=== PATIENT | male | born 1940 | race Caucasian/White ===

== ENCOUNTER 2018-06-02 12:53 | Inpatient (IN) ==
[2018-06-02 13:48] LABS: Basophils # 0.1 K/mcL (0.0-0.2); Basophils % 0.4 %; Eosinophils # 0.2 K/mcL (0.0-0.6); Eosinophils % 1.3 %; Hematocrit 36.4 % (37.5-50.1); Hemoglobin 10.9 g/dL (12.9-16.9); Immature Granulocytes % 0.4 % (0-4); Lymphocytes # 1.3 K/mcL (0.6-4.6); Lymphocytes % 11.3 %; Mean Corpuscular HGB Conc 29.9 g/dL (31.6-35.5); Mean Corpuscular Hemoglobin 22.8 pg (28.0-33.3); Mean Platelet Volume 10.9 fL (9.4-12.4); Monocytes # 1.1 K/mcL (0.0-1.3); Monocytes % 9.6 %; Neutrophils # 9.1 K/mcL (1.6-8.9); Platelet Count 220 K/mcL (140-400); Red Blood Count 4.79 M/mcL (4.19-5.50); Red Cell Distribution Width 16.3 % (11.5-14.5)
[2018-06-02] MEDS ORDERED: Isovue-370 500 ML INFUS..BTL IV ONE (14:05)
[2018-06-02 14:07] LABS: BUN/Creatinine Ratio 15 (6-26); Blood Urea Nitrogen 16 mg/dL (8-23); Calcium 9.1 mg/dL (8.6-10.3); Carbon Dioxide 30 mEq/L (23-29); Chloride 100 mEq/L (98-107); Glucose 160 mg/dL (70-105); Osmolality,Calculated 283 (280-300); Potassium 4.5 mEq/L (3.5-5.1); Sodium 134 mEq/L (136-145); eGFR For Non-African Americans > 60 (> 60)
[2018-06-02] MEDS ORDERED: Aspirin 81 MG TAB.CHEW PO STA (14:25)
--- NOTE | 2018-06-02 14:54 | Emergency Department Note ---
Disposition General Adult HPI - General Chief complaint: ED Shortness of Breath/Dyspnea Stated complaint: Possible pneumonia Time Seen by Provider: 06/02/18 13:09 Source: patient Limitations: no limitations Nursing Notes Reviewed: Yes Vital Signs Reviewed: Yes - History of Present Illness Pain Scale: 7 - Related Data Home Medications Medication Instructions Recorded Confirmed Aspirin [Adult Low Dose Aspirin EC] 81 mg PO DAILY 11/29/15 01/27/16 Cholecalciferol (Vitamin D3) 2,000 unit PO DAILY 11/29/15 01/27/16 [Vitamin D3] Amlodipine Besylate 10 mg PO DAILY 01/27/16 01/27/16 Atorvastatin [Lipitor] 40 mg PO HS 01/27/16 01/27/16 Carvedilol [Coreg] 1 tab PO Q12H 01/27/16 05/11/16 Cyanocobalamin (Vitamin B-12) 1,000 mcg PO DAILY 01/27/16 01/27/16 [Vitamin B12] Ferrous Gluconate 325 mg PO BID 01/27/16 01/27/16 Furosemide [Lasix] 40 mg PO DAILY 01/27/16 01/27/16 Hydralazine HCl 100 mg PO Q8H 01/27/16 01/27/16 Insulin Glargine,Hum.rec.anlog 10 unit SQ QAM 01/27/16 01/27/16 [Lantus Solostar] Isosorbide DInitrate [Isosorbide 20 mg PO TID 01/27/16 01/27/16 Dinitrate] Melatonin 3 mg PO HS 01/27/16 01/27/16 Potassium Chloride [K-Tab ER] 20 meq PO DAILY 01/27/16 01/27/16 SitaGLIPtin [Januvia] 25 mg PO DAILY 01/27/16 01/27/16 cloNIDine HCl [CloNIDine HCl] 0.1 mg PO TID 05/11/16 05/11/16 Previous Rx's Medication Instructions Recorded Acetaminophen [Tylenol] 650 mg PO Q6HR PRN #0 tablet 12/02/15 Insulin LISPRO [HumaLOG] 0 units SQ TIDAC vial 12/02/15 Meclizine [Antivert] 12.5 mg PO ONCE PRN #8 tablet 07/10/17 Allergies Allergy/AdvReac Type Severity Reaction Status Date / Time doxycycline AdvReac Nausea Verified 07/10/17 18:35 Past Medical History - Past Medical History Medical history: Reports: coronary artery disease, diabetes, GERD, hypertension , renal disease Surgical history: Reports: coronary bypass (CABG) Psychiatric history: Reports: no psych history - Social History Smoking Status: Former smoker Smokeless Tobacco Status: No Alcohol use: Reports: none Drug use: Reports: none Physical Exam - General Limitations: no limitations General appearance: alert Course Vital Signs Temperature 97.4 F L 06/02/18 12:56 Pulse Rate 70 06/02/18 12:56 Respiratory Rate 18 06/02/18 12:56 Blood Pressure 123/83 06/02/18 12:56 O2 Sat by Pulse Oximetry 97 06/02/18 12:56 Temperature 97.4 F L 06/02/18 13:44 Pulse Rate 70 06/02/18 13:44 Respiratory Rate 18 06/02/18 13:44 Blood Pressure 123/83 06/02/18 13:44 O2 Sat by Pulse Oximetry 97 06/02/18 13:44 Oxygen Delivery Oxygen Delivery Room Air Medical Decision Making - Lab Data Result diagrams: 06/02/18 13:33 06/02/18 13:33 Lab Results 06/02/18 06/02/18 06/02/18 Range/Units 13:33 13:33 13:33 WBC 11.8 H (4.3-11.1) K/mcL RBC 4.79 (4.19-5.50) M/mcL Hgb 10.9 L (12.9-16.9) g/dL Hct 36.4 L (37.5-50.1) % MCV 76.0 L (83.0-100.0) fL MCH 22.8 L (28.0-33.3) pg MCHC 29.9 L (31.6-35.5) g/dL RDW 16.3 H (11.5-14.5) % Plt Count 220 (140-400) K/mcL MPV 10.9 (9.4-12.4) fL Immature Gran % 0.4 (0-4) % Seg Neutrophils % 77.0 % Lymphocytes % 11.3 % Monocytes % 9.6 % Eosinophils % 1.3 % Basophils % 0.4 % Neutrophils # 9.1 H (1.6-8.9) K/mcL Lymphocytes # 1.3 (0.6-4.6) K/mcL Monocytes # 1.1 (0.0-1.3) K/mcL Eosinophils # 0.2 (0.0-0.6) K/mcL Basophils # 0.1 (0.0-0.2) K/mcL Sodium 134 L (136-145) mEq/L Potassium 4.5 (3.5-5.1) mEq/L Chloride 100 (98-107) mEq/L Carbon Dioxide 30 H (23-29) mEq/L BUN 16 (8-23) mg/dL Creatinine 1.09 (0.70-1.30) mg/dL Est GFR ( Amer) > 60 (> 60) Est GFR (Non-Af Amer) > 60 (> 60) BUN/Creatinine Ratio 15 (6-26) Glucose 160 H (70-105) mg/dL Calculated Osmolality 283 (280-300) Lactic Acid 1.4 (0.5-2.2) mmol/L Calcium 9.1 (8.6-10.3) mg/dL Troponin I (< 0.04) ng/mL B-Natriuretic Peptide (Less than 100) pg/mL 06/02/18 06/02/18 Range/Units 13:33 13:33 WBC (4.3-11.1) K/mcL RBC (4.19-5.50) M/mcL Hgb (12.9-16.9) g/dL Hct (37.5-50.1) % MCV (83.0-100.0) fL MCH (28.0-33.3) pg MCHC (31.6-35.5) g/dL RDW (11.5-14.5) % Plt Count (140-400) K/mcL MPV (9.4-12.4) fL Immature Gran % (0-4) % Seg Neutrophils % % Lymphocytes % % Monocytes % % Eosinophils % % Basophils % % Neutrophils # (1.6-8.9) K/mcL Lymphocytes # (0.6-4.6) K/mcL Monocytes # (0.0-1.3) K/mcL Eosinophils # (0.0-0.6) K/mcL Basophils # (0.0-0.2) K/mcL Sodium (136-145) mEq/L Potassium (3.5-5.1) mEq/L Chloride (98-107) mEq/L Carbon Dioxide (23-29) mEq/L BUN (8-23) mg/dL Creatinine (0.70-1.30) mg/dL Est GFR ( Amer) (> 60) Est GFR (Non-Af Amer) (> 60) BUN/Creatinine Ratio (6-26) Glucose (70-105) mg/dL Calculated Osmolality (280-300) Lactic Acid (0.5-2.2) mmol/L Calcium (8.6-10.3) mg/dL Troponin I 0.04 H* (< 0.04) ng/mL B-Natriuretic Peptide 362 H (Less than 100) pg/mL
[2018-06-02 15:24] LABS: INR 3.7
[2018-06-02 15:27] LABS: Activated Partial Thrombo Time 51.1 Seconds (26.0-36.0)
--- NOTE | 2018-06-02 15:41 | Emergency Department Note ---
Disposition Clinical Impression: Community acquired pneumonia, Fluid overload, Orthopnea Disposition: Admitted As Inpatient Condition: Fair Time of Disposition: 16:43 SOB HPI - General Chief Complaint: ED Shortness of Breath/Dyspnea Stated Complaint: Possible pneumonia Time Seen by Provider: 06/02/18 13:09 Source: patient Mode of arrival: ambulatory Limitations: no limitations Nursing Notes Reviewed: Yes Vital Signs Reviewed: Yes - History of Present Illness Patient resents emergency room with complaint of progressively worsening shortness of breath and orthopnea home. Patient denies any history of COPD or emphysema. He does have a history of cardiac related disease including coronary artery disease with bypass. He denies any chest pain other symptoms leading up to the presentation here today. He is concerned because his increased work of breathing as well as inability to lie flat. Pt Subjective Complaint: shortness of breath Onset (ago): day(s) Severity: moderate Consistency/Duration: constant Improves with: nothing Worsens with: lying flat, exertion Associated symptoms: Reports: cough, orthopnea Treatment prior to arrival: none - Related Data Home Medications Medication Instructions Recorded Confirmed Aspirin [Adult Low Dose Aspirin EC] 81 mg PO DAILY 11/29/15 01/27/16 Cholecalciferol (Vitamin D3) 2,000 unit PO DAILY 11/29/15 01/27/16 [Vitamin D3] Amlodipine Besylate 10 mg PO DAILY 01/27/16 01/27/16 Atorvastatin [Lipitor] 40 mg PO HS 01/27/16 01/27/16 Carvedilol [Coreg] 1 tab PO Q12H 01/27/16 05/11/16 Cyanocobalamin (Vitamin B-12) 1,000 mcg PO DAILY 01/27/16 01/27/16 [Vitamin B12] Ferrous Gluconate 325 mg PO BID 01/27/16 01/27/16 Furosemide [Lasix] 40 mg PO DAILY 01/27/16 01/27/16 Hydralazine HCl 100 mg PO Q8H 01/27/16 01/27/16 Insulin Glargine,Hum.rec.anlog 10 unit SQ QAM 01/27/16 01/27/16 [Lantus Solostar] Isosorbide DInitrate [Isosorbide 20 mg PO TID 01/27/16 01/27/16 Dinitrate] Melatonin 3 mg PO HS 01/27/16 01/27/16 Potassium Chloride [K-Tab ER] 20 meq PO DAILY 01/27/16 01/27/16 SitaGLIPtin [Januvia] 25 mg PO DAILY 01/27/16 01/27/16 cloNIDine HCl [CloNIDine HCl] 0.1 mg PO TID 05/11/16 05/11/16 Previous Rx's Medication Instructions Recorded Acetaminophen [Tylenol] 650 mg PO Q6HR PRN #0 tablet 12/02/15 Insulin LISPRO [HumaLOG] 0 units SQ TIDAC vial 12/02/15 Meclizine [Antivert] 12.5 mg PO ONCE PRN #8 tablet 07/10/17 Allergies Allergy/AdvReac Type Severity Reaction Status Date / Time doxycycline AdvReac Nausea Verified 07/10/17 18:35 All systems ED: reviewed and negative except as stated. Review of Systems: As Per HPI Constitutional: Denies: fever, chills Cardiovascular: Reports: dyspnea on exertion, orthopnea. Denies: chest pain, palpitations, edema Respiratory: Reports: cough, dyspnea, stridor. Denies: wheezes, sputum production Gastrointestinal: Denies: abdominal pain, nausea, vomiting, diarrhea Genitourinary: Denies: urgency, dysuria, frequency Musculoskeletal: Denies: back pain, neck pain Neurological: Denies: headache Past Medical History - Past Medical History Attestation: Yes The following information was validated with the patient. Source: patient Medical history: Reports: coronary artery disease, diabetes, GERD, hypertension , renal disease Surgical history: Reports: coronary bypass (CABG) Psychiatric history: Reports: no psych history - Social History Smoking Status: Former smoker Smokeless Tobacco Status: No Alcohol use: Reports: none Drug use: Reports: none Physical Exam - General Limitations: no limitations General appearance: alert - Eye Eye exam: Present: normal appearance, PERRL, EOMI - ENT ENT exam: normal exam, normal oropharynx, mucous membranes moist - Neck Neck exam: Present: normal inspection, full ROM, trachea midline - Chest Chest inspection: Present: normal inspection, symmetric chest wall rise. Absent : tenderness - Respiratory Respiratory exam: Present: respiratory distress. Absent: wheezes, stridor, accessory muscle use - Cardiovascular Cardiovascular exam: Present: regular rate, normal rhythm, normal heart sounds - Extremities Exam Extremities exam: Present: normal inspection, full ROM, normal capillary refill , pedal edema. Absent: tenderness - Back Exam Back exam: Present: normal inspection, full ROM. Absent: tenderness - Neurological Exam Neurological exam: Present: alert, oriented X3, CN II-XII intact, normal gait - Skin Skin exam: Present: warm, dry, intact, normal color Course Course Narrative: Patient seen and examined the time of arrival. See history of present illness. 78-year-old male with significant cardiac related history presents emergency room with cough nonproductive presentation. He also is describing orthopnea and significant increased work of breathing. He denies any recent illnesses fevers chills headache vision changes. Patient is denying chest pain. No other complaints or issues at least initially here. Physical exam the patient is sitting upright in the bed says that he cannot lay back secondary to the orthopnea. His oropharynx is patent trachea is midline he has no stridor no trismus. His lungs appear to be clear but he does have some intermittent coarse crackles as well as what he describes as increased work of breathing. Heart is regular. 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 Patient is concerning for pulmonary fluid overload versus pulmonary emboli versus pleural effusion. Patient had chest x-ray completed the outpatient setting is concerning for possible pneumonia. Patient has been on outpatient antibiotics over the last week. He denies any productive sputum fever or chills. His main complaint is the difficulty with breathing while lying flat. Patient will have chest x-ray CBC chemistry troponin EKG collected here in the emergency room along with a BNP. Suspicion is the patient has progression of his heart failure causing fluid overload versus pleural effusion. Patient will have detailed workup completed this time. Aspirin will be given. Symptomatically controlled be established as needed. Patient is otherwise clinically stable and in no distress. Disposition pending evaluation - Reevaluation(s) Reevaluation #1: Chest x-ray does not show any acute signs of pneumonia but there is concern for possible pleural effusion. CT angiography the chest is ordered to rule out definitively blood clot versus pneumonia versus pleural effusion. Patient is otherwise still symptomatic sitting up in the bed. His BNP is elevated in the 300 range but this is not the highest in the past. He does have some slight pitting edema in the lower extremities 40 mg of Lasix will be ordered. Patient will be started on antibiotics including azithromycin, Rocephin, Levaquin to treat for community-acquired pneumonia while the CT imaging is resulted. Blood cultures will be ordered. Patient does have an elevated white blood cell count and neutrophil count. Patient otherwise is clinically stable. Suspicion is this is a combination of congestive heart failure versus possible pulmonary related infection. Patient will be admitted. The hospitalist Dr. Harper reviewed the case and no other questions or concerns. The patient was informed of the family were advised and they are comfortable with the plan. No other acute issues noted this time. Patient will be admitted for continuation of care. Time: 16:41 Vital Signs Temperature 97.4 F L 06/02/18 12:56 Pulse Rate 70 06/02/18 12:56 Respiratory Rate 18 06/02/18 12:56 Blood Pressure 123/83 06/02/18 12:56 O2 Sat by Pulse Oximetry 97 06/02/18 12:56 Temperature 97.4 F L 06/02/18 13:44 Pulse Rate 70 06/02/18 13:44 Respiratory Rate 18 06/02/18 13:44 Blood Pressure 123/83 06/02/18 13:44 O2 Sat by Pulse Oximetry 97 06/02/18 13:44 Oxygen Delivery Oxygen Delivery Room Air Shortness of Breath/Dyspnea - MDM Narrative Medical decision making narrative: Pneumonia, orthopnea, fluid overload - Medical Records Medical records reviewed: Yes I reviewed the patient's medical records. - Lab Data Lab results reviewed: Yes I reviewed the patient's lab results. Result diagrams: 06/02/18 13:33 06/02/18 13:33 Lab Results 06/02/18 06/02/18 06/02/18 Range/Units 13:33 13:33 13:33 WBC 11.8 H (4.3-11.1) K/mcL RBC 4.79 (4.19-5.50) M/mcL Hgb 10.9 L (12.9-16.9) g/dL Hct 36.4 L (37.5-50.1) % MCV 76.0 L (83.0-100.0) fL MCH 22.8 L (28.0-33.3) pg MCHC 29.9 L (31.6-35.5) g/dL RDW 16.3 H (11.5-14.5) % Plt Count 220 (140-400) K/mcL MPV 10.9 (9.4-12.4) fL Immature Gran % 0.4 (0-4) % Seg Neutrophils % 77.0 % Lymphocytes % 11.3 % Monocytes % 9.6 % Eosinophils % 1.3 % Basophils % 0.4 % Neutrophils # 9.1 H (1.6-8.9) K/mcL Lymphocytes # 1.3 (0.6-4.6) K/mcL Monocytes # 1.1 (0.0-1.3) K/mcL Eosinophils # 0.2 (0.0-0.6) K/mcL Basophils # 0.1 (0.0-0.2) K/mcL PT (9.4-12.1) Seconds INR APTT (26.0-36.0) Seconds Sodium 134 L (136-145) mEq/L Potassium 4.5 (3.5-5.1) mEq/L Chloride 100 (98-107) mEq/L Carbon Dioxide 30 H (23-29) mEq/L BUN 16 (8-23) mg/dL Creatinine 1.09 (0.70-1.30) mg/dL Est GFR ( Amer) > 60 (> 60) Est GFR (Non-Af Amer) > 60 (> 60) BUN/Creatinine Ratio 15 (6-26) Glucose 160 H (70-105) mg/dL Calculated Osmolality 283 (280-300) Lactic Acid 1.4 (0.5-2.2) mmol/L Calcium 9.1 (8.6-10.3) mg/dL Troponin I (< 0.04) ng/mL B-Natriuretic Peptide (Less than 100) pg/mL 06/02/18 06/02/18 06/02/18 Range/Units 13:33 13:33 13:33 WBC (4.3-11.1) K/mcL RBC (4.19-5.50) M/mcL Hgb (12.9-16.9) g/dL Hct (37.5-50.1) % MCV (83.0-100.0) fL MCH (28.0-33.3) pg MCHC (31.6-35.5) g/dL RDW (11.5-14.5) % Plt Count (140-400) K/mcL MPV (9.4-12.4) fL Immature Gran % (0-4) % Seg Neutrophils % % Lymphocytes % % Monocytes % % Eosinophils % % Basophils % % Neutrophils # (1.6-8.9) K/mcL Lymphocytes # (0.6-4.6) K/mcL Monocytes # (0.0-1.3) K/mcL Eosinophils # (0.0-0.6) K/mcL Basophils # (0.0-0.2) K/mcL PT 42.0 H (9.4-12.1) Seconds INR 3.7 APTT 51.1 H (26.0-36.0) Seconds Sodium (136-145) mEq/L Potassium (3.5-5.1) mEq/L Chloride (98-107) mEq/L Carbon Dioxide (23-29) mEq/L BUN (8-23) mg/dL Creatinine (0.70-1.30) mg/dL Est GFR ( Amer) (> 60) Est GFR (Non-Af Amer) (> 60) BUN/Creatinine Ratio (6-26) Glucose (70-105) mg/dL Calculated Osmolality (280-300) Lactic Acid (0.5-2.2) mmol/L Calcium (8.6-10.3) mg/dL Troponin I 0.04 H* (< 0.04) ng/mL B-Natriuretic Peptide 362 H (Less than 100) pg/mL - Radiology Data Radiology results reviewed: Yes I reviewed the patient's radiology results. CT angiography the chest is unremarkable for pulmonary emboli. Suspicion of pneumonia bilaterally. - EKG Data EKG attestation: Yes I reviewed and interpreted this EKG. EKG results narrative: EKG shows ventricularly paced rhythm with no acute signs of ST segment elevation. Is compared EKG on 07/10/17 with no changes intervals appear to be normal. [place] appears to be stable.
[2018-06-02] MEDS ORDERED: Ipratropium/Albuterol Neb 3 ML IH ONE (16:01)
[2018-06-02] MEDS ORDERED: Furosemide 40 MG in 0.9 % Sodium Chloride 50 ML IVPB STA (16:12)
[2018-06-02] MEDS ORDERED: Levofloxacin 750 MG/150 ML 750 MG/150 ML BAG IVPB ONE (17:00)
[2018-06-02] MEDS ORDERED: Azithromycin 500 MG in D5% in Water 250 ML IVPB ONE (17:00)
[2018-06-02] MEDS ORDERED: cefTRIAXone 2,000 MG in Water for inj. (sterile) 20 ML 20 ML IVP ONE (17:00)
[2018-06-02] MEDS ORDERED: Naloxone 0.4 MG/ML INJ IVP PRN (17:31)
[2018-06-02] MEDS ORDERED: D5% in Water 1,000 ML IVC PRN (18:18)
[2018-06-02] MEDS ORDERED: *HR* Dextrose 50 % in Water (Syg) 50 ML SYRINGE IVP PRN (18:18)
[2018-06-02] MEDS ORDERED: Dextrose Gel 15 GM/37.5 ML TUBE PO PRN ×2 (18:18)
--- NOTE | 2018-06-02 18:23 | Internal Med History&Physical ---
<Jori Velásquez - Last Filed: 06/02/18 19:29> Date of Encounter: 06/02/18 Time of Encounter: 17:30 Internal Medicine - H&P: HPI Chief complaint: shortness of breath Admitted From: Emergency Dept History of present illness: Mr. Jones is a 78 year old male who presented to the ED with 1 week onset of worsening shortness of breath. His past medical history is significant for CABG 2002, s/p TAVR 2012 on coumadin, afib, PPM for symptomatic bradycardia 2012, HTN, HLD. His shortness of breath is worse with exertion and lying flat. He denies sick contacts, he reports compliance with his home medications. ECG ED shows pacing without ischemic changes, troponin of 0.04, BNP of 362, CXR shows a stable R sided pleural effusion, CTA shows no PE, there is evidence of mediastinal LAD. Patient denies chest pain now or in association with presenting symptoms. He denies fever, nausea, vomiting, hemoptysis, diarrhea, constipation, or abdominal pain. He reports orthopnea and mild foot swelling. He endorses shortness of breath, cough, and wheeze. Past Med Surg Social Fam HX - Past Medical History Medical history: coronary artery disease, diabetes, GERD, hypertension, renal disease Psychiatric history: no psych history - Past Surgical History Surgical History: coronary bypass (CABG) - Social History Smoking Status: Former smoker Smokeless Tobacco Status: No Alcohol use: none Drug use: none - Family History Mother Living Status: Hx Family Cardiac Disorders: Yes (AR) Hx Family Respiratory Disorders: No Hx Family Cancer: No Hx Family GI Disorders: No Hx Family Endocrine Disorder: Yes (DM) Hx Family Neuromuscular Disorders: No Hx Family Neurologic Disorders: No Hx Family HEENT Disorders: No Hx Family Autoimmune Disorders: No Internal Medicine - H&P: Meds Amlodipine Besylate 10 mg PO DAILY 01/27/16 [History] Atorvastatin [Lipitor] 40 mg PO HS 01/27/16 [History] Carvedilol [Coreg] 25 mg PO BID 01/27/16 [History] Hydralazine HCl 100 mg PO Q8H 01/27/16 [History] Isosorbide DInitrate [Isosorbide Dinitrate] 20 mg PO TID 01/27/16 [History] cloNIDine HCl [CloNIDine HCl] 0.1 mg PO TID 05/11/16 [History] Aspirin Enteric Coated [Aspirin EC] 81 mg PO DAILY 06/02/18 [History] Ferrous Gluconate 324 mg PO BID 06/02/18 [History] Gabapentin [Neurontin] 300 mg PO HS 06/02/18 [History] Glimepiride [Amaryl] 2 mg PO DAILY 06/02/18 [History] Metformin HCl [Metformin HCl ER] 500 mg PO BID 06/02/18 [History] Torsemide [Demadex] 5 mg PO DAILY PRN 06/02/18 [History] Warfarin [Coumadin] 6 mg PO SUTUTHSA 06/02/18 [History] Warfarin [Coumadin] 9 mg PO MOWEFR 06/02/18 [History] 3 Allergy/AdvReac Type Severity Reaction Status Date / Time doxycycline AdvReac Nausea Verified 07/10/17 18:35 All Systems PM: A 10-system review of systems was performed and is negative for pertinent findings except as documented above in the HPI. - Constitutional Constitutional: no chills, no fever(s), no night sweats - EENT Eyes: no change in vision, no discharge, no pain, no photophobia Ears: no ear discharge, no ear pain, no tinnitus Nose, mouth and throat: no dysphagia, no nasal discharge, no neck pain, no sore throat - Cardiovascular Cardiovascular ROS IM: dyspnea on exertion, edema (pedal), orthopnea, no chest pain, no diaphoresis, no palpitations, no syncope - Respiratory Respiratory: cough, dyspnea, wheezing, no hemoptysis, no excessive phlegm production, no change in phlegm color - Gastrointestinal Gastrointestinal: no abdominal pain, no diarrhea, no hematemesis, no hematochezia, no melena, no nausea, no vomiting - Musculoskeletal Musculoskeletal ROS IM: no numbness, no tingling - Integumentary Integumentary IM: no erythema - Neurological Neurological ROS: no confusion, no convulsions, no focal weakness, no numbness, no tingling, no tremor(s) - Psychiatric Psychiatric: no anxiety, no confusion, no depression - Constitutional Vitals: Temp Pulse Resp BP Pulse Ox 97.4 F L 65 18 164/43 95 06/02/18 13:44 06/02/18 17:02 06/02/18 17:13 06/02/18 17:02 06/02/18 17:13 General appearance: Present: A&O X 3 Exam: . - Head Head exam: Present: atraumatic, normocephalic - Eye Eye exam: Present: EOMI, conjuntiva pink, sclera anicteric - Neck Neck exam general surgery: Present: supple, trachea midline. Absent: lymphadenopathy - Respiratory Respiratory exam: Present: rales, wheezes. Absent: accessory muscle use, chest wall tenderness, rhonchi, tachypnea Additional comments: bilateral basilar rales - Cardiovascular Cardiovascular exam: Present: RRR, +S1, +S2 (loud S2). Absent: diastolic murmur , gallop, rubs, systolic murmur - GI/Abdominal GI/Abdominal exam: Present: normal bowel sounds, soft, no peritoneal signs. Absent: distended, tenderness - Extremities Exam Extremities exam: Present: pedal edema (+1 pitting), warm, radial pulses palpable and symmetrical. Absent: calf tenderness, cyanotic - Neurological Exam Neurological exam: Present: oriented X3, no focal deficits. Absent: pronater drift, facial droop, speech deficit - Skin Skin exam: Present: dry, intact Internal Med - H&P Results - Labs CBC & Chem 7: 06/02/18 13:33 06/02/18 13:33 - Assessment and plan (1) Dyspnea Current Visit: Yes Status: Acute Assessment and plan: 78M non-toxic appearing, 1 week of worsening shortness of breath, worse with exertion, laying flat ECHO LVEF 55% February 2018; trop 0.04, bnp 362 ECG shows paced rhythm without ischemic changes Mixed etiology, concern for heart failure +/- community acquired pneumonia P: Admit to med/surg with telemetry Limited echo to assess structure, ef, and valves Trend troponins, though likely type 2 PRN adn GURDEEP duoneb q4, o2 titration Rocephin 1g IVPB daily/azithromycin 500mg IVPB daily Lasix 40mg po daily Qualifiers: Dyspnea type: unspecified Qualified Code(s): R06.00 - Dyspnea, unspecified (2) Pleural effusion Current Visit: Yes Status: Acute Assessment and plan: Seen on CXR; management as above (3) S/P placement of cardiac pacemaker Current Visit: No Status: Acute Assessment and plan: PPM 2012 ECG shows paced rhythm Continue home Coreg and Amlodipine; limited echo pending (4) DM2 (diabetes mellitus, type 2) Current Visit: No Status: Chronic Assessment and plan: Hold home metformin and glimepiride SSI low dose Qualifiers: Diabetes mellitus terminal carman insulin use: unspecified terminal carman insulin use status Diabetes mellitus complication status: without complication Qualified Code(s): E11.9 - Type 2 diabetes mellitus without complications (5) H/O heart valve replacement with bioprosthetic valve Current Visit: No Status: Chronic Assessment and plan: S/P TAVR 2012 INR 3.7 ECHO to assess valve function Continue Coumadin (pharmacy to dose appreciated) (6) Hypertension Current Visit: Yes Status: Acute Assessment and plan: Chronic condition, hypertensive in 160s, continuing home Coreg and Amlodipine Qualifiers: Hypertension type: unspecified Qualified Code(s): I10 - Essential (primary ) hypertension (7) DVT prophylaxis Current Visit: Yes Status: Acute Assessment and plan: Continue Coumadin (perPT) INR 3.7 - Time Spent With Patient Total time spent is greater than 50% in coordination of care (as documented) at patient's floor/unit and/or counseling patient: Greater than 35 minutes <Darius Davis - Last Filed: 06/03/18 16:23> Date of Encounter: 06/02/18 Internal Medicine - H&P: HPI History of present illness: Mr. Jones is a 78 year old male All Systems PM: A 10-system review of systems was performed and is negative for pertinent findings except as documented above in the HPI. - Constitutional Vitals: Temp Pulse Resp BP Pulse Ox 98.2 F 70 15 136/45 96 06/03/18 15:48 06/03/18 15:48 06/03/18 15:56 06/03/18 15:48 06/03/18 15:56 Internal Med - H&P Results - Labs CBC & Chem 7: 06/03/18 04:59 06/03/18 04:59 Labs: Short CBC 06/03/18 Range/Units 04:59 WBC 10.2 (4.3-11.1) K/mcL Hgb 10.2 L (12.9-16.9) g/dL Hct 33.4 L (37.5-50.1) % Plt Count 190 (140-400) K/mcL Neutrophils # 7.4 (1.6-8.9) K/mcL BMP 09/18/18 04:59 Sodium 133 L Potassium 4.0 Chloride 99 Carbon Dioxide 28 BUN 18 Creatinine 1.16 Glucose 82 Calcium 8.6 Cardiac Enzymes 06/02/18 06/03/18 Range/Units 23:07 04:59 Troponin I 0.04 H* 0.04 H* (< 0.04) ng/mL - Impressions ITS Impressions Echocardiogram 06/03/18 07:00 Impressions: LVEF 55%. Indeterminate diastolic function. Normal right ventricular structure and function. Mild-moderate mitral regurgitation. Bioprosthetic aortic valve not well visualized. Normal function by Doppler. Mild aortic regurgitation. No pulmonary hypertension. A device lead was visualized in the right atrium and right ventricle. Left Ventricular Wall Motion: Rest Echo Findings All wall segments showed normal motion. Findings: Study Quality * Technically adequate exam. ECG Findings * Paced rhythm. Left Ventricle * LVEF 55%. * Normal LV chamber size and wall thickness. * Indeterminate diastolic function. Right Ventricle * Normal right ventricular structure and function. Left Atrium * Mildly dilated left atrium. Right Atrium * Normal right atrial size. Mitral Valve * Mild-moderate mitral annular calcification * No mitral stenosis. * Mild-moderate mitral regurgitation. * Mildly thickened mitral valve leaflets. Aortic Valve * Bioprosthetic aortic valve not well visualized. * Mild aortic regurgitation. * No aortic stenosis. Tricuspid Valve * Tricuspid valve not well visualized. * Trace tricuspid regurgitation. * Estimated RA pressure is 3 mmHg. Pulmonic Valve * Pulmonic valve is not well visualized. * No pulmonic stenosis. * No pulmonic regurgitation. Pulmonary Artery * Pulmonary artery not well visualized. Aorta * Normally sized aortic root. Pericardium * There is no pericardial effusion present. Device lead * A device lead was visualized in the right atrium and right ventricle. Interatrial Septum * No evidence of PFO by color Doppler. IVC * Normal IVC dimensions and inspiratory collapse. - Assessment and plan (1) Pneumonia Current Visit: Yes Status: Suspected Qualifiers: Pneumonia type: due to Pneumococcus Laterality: bilateral Lung location: lower lobe of lung Qualified Code(s): J13 - Pneumonia due to Streptococcus pneumoniae (2) COPD (chronic obstructive pulmonary disease) Current Visit: Yes Status: Suspected Qualifiers: COPD type: COPD with acute exacerbation Qualified Code(s): J44.1 - Chronic obstructive pulmonary disease with (acute) exacerbation (3) Fluid overload Current Visit: Yes Status: Acute Qualifiers: Hypervolemia type: other Qualified Code(s): E87.79 - Other fluid overload (4) Hypertension Current Visit: Yes Status: Chronic Qualifiers: Hypertension type: essential hypertension Qualified Code(s): I10 - Essential (primary) hypertension (5) DM2 (diabetes mellitus, type 2) Current Visit: No Status: Chronic Qualifiers: Diabetes mellitus terminal carman insulin use: without care home use Diabetes mellitus complication status: without complication Qualified Code(s): E11.9 - Type 2 diabetes mellitus without complications (6) H/O heart valve replacement with bioprosthetic valve Current Visit: No Status: Chronic - Time Spent With Patient Total time spent is greater than 50% in coordination of care (as documented) at patient's floor/unit and/or counseling patient: - Attending Attestation I examined this patient and my medical decision-making was reviewed with the Resident Physician on 06/02/18. I agree with the documented findings, disposition and treatment plan as described except to the extent set forth below. Please see event note of this date.
[2018-06-02] MEDS ORDERED: Ipratropium/Albuterol Neb 3 ML IH PRN (18:45)
[2018-06-02] MEDS ORDERED: Albuterol 2.5 MG/3 ML NEBULIZER IH PRN (19:00)
--- NOTE | 2018-06-02 19:15 | Event Note ---
Date of Encounter: 06/02/18 Time of Encounter: 18:45 I examined this patient and my medical decision-making was reviewed with the Resident Physician on 06/02/18. I agree with the documented findings, disposition and treatment plan as described except to the extent set forth below. Mr Jones is a 78 y/o male with a complicated cardiac history presented to ED with worsening SOB. He has had symptoms progressive over last few days and was sleeping sitting up in chair. He had orthopnea and chest congestion. No fever or chills. Evaluated in ED and given aerosol and Lasix. At the current time he is feeling somewhat better. Exam alert Comfortable up in chair. Mucus membranes dry Heart reg - Lungs with diffuse wheeze and rhonchi Abd soft No edema at this time I/P 1. Acute exac CHF - probable. Diastolic. 2. Acute exac COPD - aerosols, abx, 3. Possible PNA Further diagnoses and plan as per H&P
[2018-06-02] MEDS: Insulin LISPRO 300 UNITS/3 ML VIAL SQ SCH ×2 (22:00→22:06)
[2018-06-02] MEDS: Gabapentin 300 MG CAPSULE PO SCH (22:05)
[2018-06-02] MEDS: amLODIPine 5 MG TABLET PO SCH (22:06)
[2018-06-02] MEDS: Ipratropium/Albuterol Neb 3 ML IH SCH (23:27)
[2018-06-03] MEDS: Ipratropium/Albuterol Neb 3 ML IH SCH ×6 (04:25→23:36)
[2018-06-03 05:15] LABS: Basophils # 0.1 K/mcL (0.0-0.2); Basophils % 0.6 %; Eosinophils # 0.4 K/mcL (0.0-0.6); Eosinophils % 3.5 %; Hematocrit 33.4 % (37.5-50.1); Hemoglobin 10.2 g/dL (12.9-16.9); Immature Granulocytes % 0.5 % (0-4); Lymphocytes # 1.3 K/mcL (0.6-4.6); Lymphocytes % 12.6 %; Mean Corpuscular HGB Conc 30.5 g/dL (31.6-35.5); Mean Corpuscular Hemoglobin 22.8 pg (28.0-33.3); Mean Corpuscular Volume 74.7 fL (83.0-100.0); Mean Platelet Volume 10.2 fL (9.4-12.4); Monocytes % 9.6 %; Neutrophils # 7.4 K/mcL (1.6-8.9); Platelet Count 190 K/mcL (140-400); Red Blood Count 4.47 M/mcL (4.19-5.50); Red Cell Distribution Width 16.2 % (11.5-14.5); Segmented Neutrophils % 73.2 %
[2018-06-03 05:22] LABS: Prothrombin Time 53.2 Seconds (9.4-12.1)
[2018-06-03 05:23] LABS: INR 4.7
[2018-06-03 05:34] LABS: BUN/Creatinine Ratio 16 (6-26); Blood Urea Nitrogen 18 mg/dL (8-23); Calcium 8.6 mg/dL (8.6-10.3); Carbon Dioxide 28 mEq/L (23-29); Chloride 99 mEq/L (98-107); Glucose 82 mg/dL (70-105); Osmolality,Calculated 277 (280-300); Sodium 133 mEq/L (136-145); eGFR For Non-African Americans > 60 (> 60)
[2018-06-03] MEDS: Insulin LISPRO 300 UNITS/3 ML VIAL SQ SCH ×4 (08:26→20:50)
[2018-06-03] MEDS: amLODIPine 5 MG TABLET PO SCH (08:27)
[2018-06-03] MEDS: Furosemide 40 MG TABLET PO SCH (08:27)
[2018-06-03] MEDS: Aspirin Enteric Coated 81 MG Tablet PO SCH (08:27)
[2018-06-03] MEDS: cefTRIAXone 1,000 MG in Water for inj. (sterile) 20 ML 10 ML IVP SCH (08:28)
[2018-06-03] MEDS: Azithromycin 500 MG in D5% in Water 250 ML IVPB SCH (08:28)
--- NOTE | 2018-06-03 12:55 | Electrocardiograph Report ---
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
--- NOTE | 2018-06-03 15:28 | Internal Med Progress Note ---
<Darius Davis - Last Filed: 06/03/18 16:15> Hospitalist Progress Note - Encounter Date of Encounter: 06/03/18 - Exam Vitals: Temp Pulse Resp BP Pulse Ox 98.2 F 70 15 136/45 96 06/03/18 15:48 06/03/18 15:48 06/03/18 15:56 06/03/18 15:48 06/03/18 15:56 - Assessment and Plan (1) Pneumonia Current Visit: Yes Status: Suspected Assessment and Plan: Pt currently on IV abx. Seems to be responding. Add steroids. (2) COPD (chronic obstructive pulmonary disease) Current Visit: Yes Status: Suspected Assessment and Plan: Add steroids (3) Fluid overload Current Visit: Yes Status: Acute (4) Hypertension Current Visit: Yes Status: Chronic (5) DM2 (diabetes mellitus, type 2) Current Visit: No Status: Chronic (6) H/O heart valve replacement with bioprosthetic valve Current Visit: No Status: Chronic - Time Spent with Patient Total time spent is greater than 50% in coordination of care (as documented) at patient's floor/unit and/or counseling patient: Internal Medicine: Result - Labs CBC & Chem 7: 06/03/18 04:59 06/03/18 04:59 Labs: Short CBC 06/03/18 Range/Units 04:59 WBC 10.2 (4.3-11.1) K/mcL Hgb 10.2 L (12.9-16.9) g/dL Hct 33.4 L (37.5-50.1) % Plt Count 190 (140-400) K/mcL Neutrophils # 7.4 (1.6-8.9) K/mcL BMP 06/03/18 04:59 Sodium 133 L Potassium 4.0 Chloride 99 Carbon Dioxide 28 BUN 18 Creatinine 1.16 Glucose 82 Calcium 8.6 Cardiac Enzymes 06/02/18 06/03/18 Range/Units 23:07 04:59 Troponin I 0.04 H* 0.04 H* (< 0.04) ng/mL - ABG Interpretation ABG results: PT/INR, D-dimer PT 53.2 Seconds (9.4-12.1) H* 06/03/18 04:59 - Impressions Impressions Echocardiogram 06/03/18 07:00 Impressions: LVEF 55%. Indeterminate diastolic function. Normal right ventricular structure and function. Mild-moderate mitral regurgitation. Bioprosthetic aortic valve not well visualized. Normal function by Doppler. Mild aortic regurgitation. No pulmonary hypertension. A device lead was visualized in the right atrium and right ventricle. Left Ventricular Wall Motion: Rest Echo Findings All wall segments showed normal motion. Findings: Study Quality * Technically adequate exam. ECG Findings * Paced rhythm. Left Ventricle * LVEF 55%. * Normal LV chamber size and wall thickness. * Indeterminate diastolic function. Right Ventricle * Normal right ventricular structure and function. Left Atrium * Mildly dilated left atrium. Right Atrium * Normal right atrial size. Mitral Valve * Mild-moderate mitral annular calcification * No mitral stenosis. * Mild-moderate mitral regurgitation. * Mildly thickened mitral valve leaflets. Aortic Valve * Bioprosthetic aortic valve not well visualized. * Mild aortic regurgitation. * No aortic stenosis. Tricuspid Valve * Tricuspid valve not well visualized. * Trace tricuspid regurgitation. * Estimated RA pressure is 3 mmHg. Pulmonic Valve * Pulmonic valve is not well visualized. * No pulmonic stenosis. * No pulmonic regurgitation. Pulmonary Artery * Pulmonary artery not well visualized. Aorta * Normally sized aortic root. Pericardium * There is no pericardial effusion present. Device lead * A device lead was visualized in the right atrium and right ventricle. Interatrial Septum * No evidence of PFO by color Doppler. IVC * Normal IVC dimensions and inspiratory collapse. Consult Discharge Plan - Plan Referrals: Eloy Bergman MD [Primary Care Provider] - - Attending Attestation I examined this patient and my medical decision-making was reviewed with the Resident Physician on 06/03/18. I agree with the documented findings, disposition and treatment plan as described except to the extent set forth below. Mr Jones is currently admitted for pneumonia, probable COPD and CHF. He remains moderate to high risk due to potential for worsening clinical status. Mr Jones is feeling OK. He is still coughing a lot. No fever or chills. No CP. Echo just done. No GI issues. Exam alert comfortable up in chair. Mucus membranes dry Heart reg and not tachy Wheeze noted bilaterally L greater than R. No rales or rhonchi Abd soft No edema I/P 1. PNA - on IV abx 2. Probable COPD - start steroids today. Continue aerosols. 3. ? CHF - echo pending. Further diagnoses and plan as above. Anticipate d/c tomorrow. <Jori Velásquez - Last Filed: 06/03/18 18:17> Hospitalist Progress Note - Encounter Date of Encounter: 06/03/18 Time of Encounter: 12:00 - Subjective Interval History: Mr. Jones is seen and evaluated in chair at bedside, accompanied by . He reports good sleep, some cough, no fever. 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 Bergman, his PMD. - Exam Vitals: Temp Pulse Resp BP Pulse Ox 97.9 F 66 15 108/52 95 06/03/18 11:47 06/03/18 11:47 06/03/18 11:54 06/03/18 11:47 06/03/18 11:54 Exam: Head exam: Present: atraumatic, normocephalic Eye exam: Present: conjuntiva pink, sclera anicteric, EOMI Respiratory exam: Present: CTAB, normal chest wall excursion. Absent: accessory muscle use, rales, rhonchi, wheezes Cardiovascular exam: Present: RRR, +S1, +S2. Absent: diastolic murmur, gallop, rubs, systolic murmur Neurological exam: oriented X3, no focal deficits. Absent: facial droop, speech deficit Skin exam: Present: dry, intact - Assessment and Plan (1) Dyspnea Current Visit: Yes Status: Acute Assessment and Plan: Bronchitis/PNA versus obstructive exacerbation, PFT planned outpatient with PCP per patient and Continuing abx will do so for 5 days, possible Levaquin monotherapy for 2 more days after discharge tomorrow Steroid started today, receiving 40mg po (plan for short course without taper), can d/c with 3 pills continue duonebs and o2 titration (2) Pleural effusion Current Visit: Yes Status: Acute Assessment and Plan: seen on imaging ECHO resulted, shows preserved EF 50% monitor (3) S/P placement of cardiac pacemaker Current Visit: No Status: Acute Assessment and Plan: 2012 ECG shows paced rhythm Continue home Coreg and Amlodipine; limited echo shows EF 55% consistent with February 2018 echo (4) DM2 (diabetes mellitus, type 2) Current Visit: No Status: Chronic Assessment and Plan: Hold home metformin and glimepiride SSI low dose (5) H/O heart valve replacement with bioprosthetic valve Current Visit: No Status: Chronic Assessment and Plan: S/P TAVR 2012 valve movement not well visualized by echo, doppler shows normal function Continue Coumadin (pharmacy to dose appreciated) INR 4.7 on today's labs (6) Hypertension Current Visit: Yes Status: Chronic Assessment and Plan: Overall normotensive today, 100s to 130s (7) DVT prophylaxis Current Visit: Yes Status: Acute Assessment and Plan: Continuing Coumadin - Time Spent with Patient Total time spent is greater than 50% in coordination of care (as documented) at patient's floor/unit and/or counseling patient: Internal Medicine: Result - Labs CBC & Chem 7: 06/03/18 04:59 06/03/18 04:59 Labs: Short CBC 06/03/18 Range/Units 04:59 WBC 10.2 (4.3-11.1) K/mcL Hgb 10.2 L (12.9-16.9) g/dL Hct 33.4 L (37.5-50.1) % Plt Count 190 (140-400) K/mcL Neutrophils # 7.4 (1.6-8.9) K/mcL BMP 06/03/18 04:59 Sodium 133 L Potassium 4.0 Chloride 99 Carbon Dioxide 28 BUN 18 Creatinine 1.16 Glucose 82 Calcium 8.6 Cardiac Enzymes 06/02/18 06/03/18 Range/Units 23:07 04:59 Troponin I 0.04 H* 0.04 H* (< 0.04) ng/mL - ABG Interpretation ABG results: PT/INR, D-dimer PT 53.2 Seconds (9.4-12.1) H* 06/03/18 04:59 - Impressions Impressions Echocardiogram 06/03/18 07:00 Impressions: LVEF 55%. Indeterminate diastolic function. Normal right ventricular structure and function. Mild-moderate mitral regurgitation. Bioprosthetic aortic valve not well visualized. Normal function by Doppler. Mild aortic regurgitation. No pulmonary hypertension. A device lead was visualized in the right atrium and right ventricle. Left Ventricular Wall Motion: Rest Echo Findings All wall segments showed normal motion. Findings: Study Quality * Technically adequate exam. ECG Findings * Paced rhythm. Left Ventricle * LVEF 55%. * Normal LV chamber size and wall thickness. * Indeterminate diastolic function. Right Ventricle * Normal right ventricular structure and function. Left Atrium * Mildly dilated left atrium. Right Atrium * Normal right atrial size. Mitral Valve * Mild-moderate mitral annular calcification * No mitral stenosis. * Mild-moderate mitral regurgitation. * Mildly thickened mitral valve leaflets. Aortic Valve * Bioprosthetic aortic valve not well visualized. * Mild aortic regurgitation. * No aortic stenosis. Tricuspid Valve * Tricuspid valve not well visualized. * Trace tricuspid regurgitation. * Estimated RA pressure is 3 mmHg. Pulmonic Valve * Pulmonic valve is not well visualized. * No pulmonic stenosis. * No pulmonic regurgitation. Pulmonary Artery * Pulmonary artery not well visualized. Aorta * Normally sized aortic root. Pericardium * There is no pericardial effusion present. Device lead * A device lead was visualized in the right atrium and right ventricle. Interatrial Septum * No evidence of PFO by color Doppler. IVC * Normal IVC dimensions and inspiratory collapse. <Darius Davis - Last Filed: 06/03/18 16:15> (1) Pneumonia Qualifiers: Pneumonia type: due to Pneumococcus Laterality: bilateral Lung location: lower lobe of lung Qualified Code(s): J13 - Pneumonia due to Streptococcus pneumoniae (2) COPD (chronic obstructive pulmonary disease) Qualifiers: COPD type: COPD with acute exacerbation Qualified Code(s): J44.1 - Chronic obstructive pulmonary disease with (acute) exacerbation (3) Fluid overload Qualifiers: Hypervolemia type: other Qualified Code(s): E87.79 - Other fluid overload (4) Hypertension Qualifiers: Hypertension type: essential hypertension Qualified Code(s): I10 - Essential (primary) hypertension (5) DM2 (diabetes mellitus, type 2) Qualifiers: Diabetes mellitus penitentiary insulin use: without penitentiary use Diabetes mellitus complication status: without complication Qualified Code(s): E11.9 - Type 2 diabetes mellitus without complications <Jori Velásquez - Last Filed: 06/03/18 18:17> (1) Dyspnea Qualifiers: Dyspnea type: unspecified Qualified Code(s): R06.00 - Dyspnea, unspecified (4) DM2 (diabetes mellitus, type 2) Qualifiers: Diabetes mellitus penitentiary insulin use: without 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
[2018-06-03] MEDS ORDERED: Warfarin perPT PO SCH (18:00)
[2018-06-03] MEDS: MethylPREDNISolone 40 MG/ML VIAL IVP SCH (18:02)
[2018-06-03] MEDS: Gabapentin 300 MG CAPSULE PO SCH (20:48)
[2018-06-04] MEDS: Ipratropium/Albuterol Neb 3 ML IH SCH ×3 (03:34→11:17)
[2018-06-04 05:55] LABS: Hematocrit 29.9 % (37.5-50.1); Hemoglobin 9.2 g/dL (12.9-16.9); Mean Corpuscular HGB Conc 30.8 g/dL (31.6-35.5); Mean Corpuscular Hemoglobin 22.2 pg (28.0-33.3); Mean Corpuscular Volume 72.2 fL (83.0-100.0); Mean Platelet Volume 11.4 fL (9.4-12.4); Platelet Count 222 K/mcL (140-400); Red Blood Count 4.14 M/mcL (4.19-5.50); Red Cell Distribution Width 16.2 % (11.5-14.5)
[2018-06-04 05:57] LABS: Prothrombin Time 33.3 Seconds (9.4-12.1)
[2018-06-04 07:30] LABS: BUN/Creatinine Ratio 25 (6-26); Blood Urea Nitrogen 33 mg/dL (8-23); Calcium 8.6 mg/dL (8.6-10.3); Carbon Dioxide 21 mEq/L (23-29); Chloride 98 mEq/L (98-107); Glucose 342 mg/dL (70-105); Osmolality,Calculated 289 (280-300); Potassium 4.7 mEq/L (3.5-5.1); Sodium 129 mEq/L (136-145); eGFR For Non-African Americans 54 (> 60)
[2018-06-04] MEDS: Furosemide 40 MG TABLET PO SCH (09:21)
[2018-06-04] MEDS: Aspirin Enteric Coated 81 MG Tablet PO SCH (09:21)
[2018-06-04] MEDS: amLODIPine 5 MG TABLET PO SCH (09:22)
[2018-06-04] MEDS: Insulin LISPRO 300 UNITS/3 ML VIAL SQ SCH ×2 (09:25→11:52)
[2018-06-04] MEDS: MethylPREDNISolone 40 MG/ML VIAL IVP SCH (09:26)
[2018-06-04] MEDS: cefTRIAXone 1,000 MG in Water for inj. (sterile) 20 ML 10 ML IVP SCH (09:27)
[2018-06-04] MEDS: Azithromycin 500 MG in D5% in Water 250 ML IVPB SCH ×2 (09:35→10:34)
[2018-06-04 11:06] VITALS: BP 148/61
--- NOTE | 2018-06-04 12:24 | Discharge Summary ---
- NOTES TO OUTPATIENT PROVIDER Notes to Outpatient Provider: Admitted for pneumonia and CHF. Most likely has COPD as well. Responded to abx and steroids. Nebulizer to be prescribed. Glucose high with steroids. Sodium low today as glucose is high. Needs follow up CT - we treated as pneumonia but radiology suggested follow up. Orders not resulted at time of discharge: Pending orders 06/05/18 04:00 PT/INR [Prothrombin Time INR] [COAG] AM 0400 06/06/18 04:00 PT/INR [Prothrombin Time INR] [COAG] AM 0400 06/07/18 04:00 PT/INR [Prothrombin Time INR] [COAG] AM 0400 Date of Encounter: 06/04/18 Time of Encounter: 12:16 - Discharge Diagnosis (1) Pneumonia Priority: Primary Status: Suspected Assessment and Plan: Improved with steroids. Plan d/c on PO Levaquin - to watch INR. Qualifiers: Pneumonia type: due to Pneumococcus Laterality: bilateral Lung location: lower lobe of lung Qualified Code(s): J13 - Pneumonia due to Streptococcus pneumoniae (2) COPD (chronic obstructive pulmonary disease) Priority: Secondary Status: Suspected Assessment and Plan: Improved with steroids. Complete 5 day course. Qualifiers: COPD type: COPD with acute exacerbation Qualified Code(s): J44.1 - Chronic obstructive pulmonary disease with (acute) exacerbation (3) Fluid overload Priority: Secondary Status: Resolved Assessment and Plan: Pt fluid overloaded as well on admit. Has been getting Demedex daily in hospital. Qualifiers: Hypervolemia type: other Qualified Code(s): E87.79 - Other fluid overload (4) Hypertension Priority: Secondary Status: Chronic Qualifiers: Hypertension type: essential hypertension Qualified Code(s): I10 - Essential (primary) hypertension (5) DM2 (diabetes mellitus, type 2) Priority: Secondary Status: Chronic Assessment and Plan: Glucose high due to steroids. Qualifiers: Diabetes mellitus manager terminal insulin use: without detention use Diabetes mellitus complication status: with hyperglycemia Qualified Code(s): E11.65 - Type 2 diabetes mellitus with hyperglycemia (6) H/O heart valve replacement with bioprosthetic valve Priority: Secondary Status: Chronic Hospital course: Mr. Jones is a 78 year old male with hx of a fib and CAD presented to ED with complaints of worsening dyspnea over the prior week. He was evaluated and subsequently admitted. [facility] He was continued on his PO Demedex. Due to concern for pneumonia he was started on IV abx and aerosols. He had improvement initially but continued to wheeze. Steroids were started. Glucose has gone up with steroids. Today he is afebrile. He feels well and feels ready for discharge home. Discharge discussed with: patient, family - Time Spent with Patient Total time spent providing and/or coordinating discharge services: 41min - Discharge Medications Prescriptions: Ipratropium/Albuterol Neb [Duoneb] 3 ml IH [id number] PRN #100 inhsol PRN Reason: Dyspnea Levofloxacin [Levaquin] 500 mg PO DAILY #5 tablet predniSONE [PredniSONE] 40 mg PO DAILY #6 tablet Home Medications: Amlodipine Besylate 10 mg PO DAILY 01/27/16 [History] Atorvastatin [Lipitor] 40 mg PO HS 01/27/16 [History] Carvedilol [Coreg] 25 mg PO BID 01/27/16 [History] Hydralazine HCl 100 mg PO Q8H 01/27/16 [History] Isosorbide DInitrate [Isosorbide Dinitrate] 20 mg PO TID 01/27/16 [History] cloNIDine HCl [CloNIDine HCl] 0.1 mg PO TID 05/11/16 [History] Aspirin Enteric Coated [Aspirin EC] 81 mg PO DAILY 06/02/18 [History] Ferrous Gluconate 324 mg PO BID 06/02/18 [History] Gabapentin [Neurontin] 300 mg PO HS 06/02/18 [History] Glimepiride [Amaryl] 2 mg PO DAILY 06/02/18 [History] Metformin HCl [Metformin HCl ER] 500 mg PO BID 06/02/18 [History] Warfarin [Coumadin] 6 mg PO SUTUTHSA 06/02/18 [History] Warfarin [Coumadin] 9 mg PO MOWEFR 06/02/18 [History] Ipratropium/Albuterol Neb [Duoneb] 3 ml IH [id number] PRN #100 inhsol 06/04/18 [Rx] Levofloxacin [Levaquin] 500 mg PO DAILY #5 tablet 06/04/18 [Rx] Torsemide [Demadex] 5 mg PO DAILY #30 tab 06/04/18 [Rx] predniSONE [PredniSONE] 40 mg PO DAILY #6 tablet 06/04/18 [Rx] Allergies/Adverse Reactions: 3 Allergy/AdvReac Type Severity Reaction Status Date / Time doxycycline AdvReac Nausea Verified 07/10/17 18:35 Date of admission: 06/02/18 17:47 Primary care physician: Eloy Bergman MD Consults: 06/03/18 09:14 Consult to Nurse Navigator [CONS] Routine Comment: COPD,CHF,PNEUMONIA Discharging clinician: Darius Davis Anticipated date of discharge: 06/04/18 - Constitutional Vitals: Temp Pulse Resp BP Pulse Ox 97.9 F 68 10 148/61 99 06/04/18 11:00 06/04/18 11:00 06/04/18 11:17 06/04/18 11:00 06/04/18 11:17 General appearance: Present: A&O X 3, pleasant, answers questions appropriately Exam: See below - Head Head exam: Present: atraumatic, normocephalic - Eye Eye exam: Present: EOMI, conjuntiva pink - ENT ENT exam: Present: mucous membranes moist - Respiratory Respiratory exam: Present: rales (Faint in L base.). Absent: rhonchi, wheezes - Cardiovascular Cardiovascular exam: Present: RRR. Absent: tachycardia - GI/Abdominal GI/Abdominal exam: Present: soft. Absent: tenderness - Extremities Exam Extremities exam: Present: warm. Absent: tenderness - Neurological Exam Neurological exam: Present: alert, oriented X3, no focal deficits - Skin Skin exam: Present: dry, warm - Patient Status Disposition: Home, Self-Care Condition: Good Functional capacity at discharge: independent ambulation Overall status at discharge: patient is progressing back to baseline - Discharge Instructions Instructions: Prednisone (By mouth), Levofloxacin (By mouth), Ipratropium/ Albuterol (By breathing), Community-acquired Pneumonia (DC) Follow Up With: Eloy Bergman MD [Primary Care Provider] - (Please call and make a follow up appt for 7-10 days after discharge.) Additional Instructions: No coumadin tonight. Follow up with coumadin clinic tonight. Take Demedex daily till seen by PCP in follow up. - Diet and Activity Activity: increase activity as tolerated Diet: advance to your usual diet
[2018-06-04] MEDS ORDERED: *HR* Warfarin 3 MG TABLET PO ONE (18:00)
== END 2018-06-04 13:24 | disposition home or self-care (01) | DRG 194 ==
LOC: EMEROOARM 12:53 → 3BNU 12:53 → SUATTDRO 16:41 → 3BNU 17:45 → SUATTDRO 17:47 → 3BNU 06-03 12:25
PROVIDERS: ADMIT Student in an Organized Health Care Education/Training Program; ATTEND Internal Medicine